=== PATIENT | male | born 1950 | race Caucasian/White ===

== ENCOUNTER → 2024-08-17 | Outpatient (CLI) | payer MEDICARE, SELFPAY ==
--- NOTE | 2024-08-17 06:34 | ECHOD_ITS ---
Reason For Study: CAD/ASHD Procedure This was a 2D Doppler, Color Flow transthoracic echocardiogram. Exam performed in department. Left Ventricle Normal LV size. Left ventricular systolic function is normal. The left ventricular ejection fraction is 70 %. No regional wall motion abnormalities noted. Right Ventricle Normal RV size. Normal systolic function. Atria Normal left atrium. Normal right atrium. Mitral Valve Normal mitral valve. Tricuspid Valve Normal tricuspid valve. Aortic Valve Trisinus/trileaflet aortic valve. Mild focal aortic valve thickening. Pulmonic Valve Normal pulmonic valve. Great Vessels Normal aortic root. The pulmonary artery is normal size. Inferior vena cava collapse with respiration. Pericardium/Pleural No pericardial effusion. MMode/2D Measurements & Calculations LVIDd: 2.9 cm IVSd: 1.1 cm LVOT diam: 2.0 cm LVIDs: 2.0 cm LVPWd: 1.2 cm LVOT area: 3.0 cm2 FS: 29.4 % Ao root diam: 3.3 cm LAV(MOD-bp): 68.0 ml LVAd ap4: 22.1 cm2 LAV(MOD-bp) Indexed: 34.0 ml/m2 LVLd ap4: 8.2 cm LAV(MOD-sp2): 64.1 ml EDV(MOD-sp4): 48.4 ml LAV(MOD-sp4): 66.2 ml EDV(sp4-el): 50.6 ml LVAs ap4: 11.5 cm2 LVLs ap4: 7.1 cm ESV(MOD-sp4): 15.9 ml ESV(sp4-el): 15.6 ml EF(MOD-sp4): 67.2 % EF(sp4-el): 69.1 % SV(MOD-sp4): 32.5 ml SV(sp4-el): 35.0 ml LA A4 area: 22.4 cm2 LA dimension(2D): 4.4 cm RA A4 area: 15.8 cm2 Time Measurements MV dec time: 0.11 sec Doppler Measurements & Calculations MV E max shahab: 53.8 cm/sec Lat Peak E' Shahab: 8.4 cm/sec Med Peak E' Shahab: 12.6 cm/sec MV A max shahab: 94.2 cm/sec E/E' lat: 6.4 E/E' med: 4.3 MV E/A: 0.57 MV V2 max: 99.4 cm/sec Ao V2 max: 128.9 cm/sec MV max P.0 mmHg MV dec slope: 523.2 cm/sec2 Ao max P.7 mmHg MV V2 mean: 61.7 cm/sec Ao V2 mean: 83.0 cm/sec MV mean P.7 mmHg Ao mean P.3 mmHg MV V2 VTI: 17.8 cm Ao V2 VTI: 26.0 cm PA V2 max: 135.0 cm/sec PA V2 mean: 78.9 cm/sec ECHO/Echo Complete Interpretation Summary Normal LV size. Left ventricular systolic function is normal. The left ventricular ejection fraction is 70 %. Normal left atrium. Normal right atrium. Structurally normal valves. Ordering Physician: Jeffery Dumont Referring Physician: Jeffery Dumont Performed By: Gabriela Trevino RCS
--- NOTE | 2024-08-17 16:49 | STRESSREP_ITS ---
Stress Test Report Exercise myocardial perfusion stress test. 74-year-old man with a history of chest pain Stress protocol: Resting EKG demonstrates normal sinus rhythm with a rate of 74 bpm resting blood pressure is 110/74 mmHg. The patient exercised according to the regular David protocol for a total duration of 9 minutes attaining a maximum heart rate of 139 bpm which was 95% of maximum predicted heart rate; the maximum workload was 10.1 metabolic equivalents. At rest there were no ST or T wave changes noted to suggest ischemia and at peak exercise upsloping ST changes only were noted which did not meet the criteria for ischemia. No clinical angina was noted the test was terminated due to the target heart rate being achieved/fatigue. The peak b lood pressure was 138/52 mmHg. Rate-pressure product was 17,900. Myocardial perfusion protocol. 11.7 mCi of technetium 99m sestamibi was injected at rest. The patient exercised according to regular David protocol for total duration of 9 minutes and at peak exercise 34.4 mCi of technetium 99m sestamibi was injected stress images were obtained stress and rest images were reconstructed in comparing the short axis vertical long and horizontal long axis. Gated images were also obtained. Perfusion SPECT analysis: Review of the stress images demonstrate normal uptake of tracer noted in all areas of the myocardium. The resting images similarly demonstrate normal uptake of tracer noted in all areas of the myocardium. No areas of reversibility are noted to suggest ischemia no previous infarct was noted. Gated SPECT analysis: The gated ejection fraction is 75%. Conclusion: Normal exercise myocardial perfusion stress test at a high workload Preserved ejection fraction.
== END | disposition home or self-care (01) ==
PROVIDERS: PCP Preventive Medicine Occupational Medicine; Referring Provider Internal Medicine Cardiovascular Disease; Visit Provider Internal Medicine Cardiovascular Disease
DX: I25.10 Atherosclerotic heart disease of native coronary artery without angina pectoris (principal)
CPT/HCPCS: 78452; 93017; 93306; A9500